=== PATIENT | male | born 1975 | race Caucasian/White ===

== ENCOUNTER 2017-06-15 14:52 | Emergency (ER) | payer OTHER ==
[2017-06-15 15:15] VITALS: BP 155/83
[2017-06-15] MEDS ORDERED: Sodium Chloride 0.9% 1,000 ML IV ONE (15:33)
[2017-06-15] MEDS ORDERED: Meclizine 25 MG Tab PO ONE (15:34)
[2017-06-15] MEDS ORDERED: Loratadine 10 MG Tab PO ONE (15:34)
[2017-06-15] MEDS ORDERED: Sodium Chloride 0.9% 10 ML Syringe FLUSH PRN (15:34)
--- NOTE | 2017-06-15 15:39 | EDM.PDOC ---
ED HPI GENERAL MEDICAL PROBLEM - General Chief Complaint: Gastrointestinal Problem Stated Complaint: DIZZY; NAUSEA Time Seen by Provider: 06/15/17 15:30 Source of Information: Reports: Patient History Limitations: Reports: No Limitations - History of Present Illness INITIAL COMMENTS - FREE TEXT/NARRATIVE: Lane is an otherwise healthy 42 year old male who presents to the ED today with c/o dizziness since 8 PM yesterday. Patient endorses a room spinning and "shifting" sensation. He denies any chest pain/palpitations or fever/chills. Patient reports similar symptoms 3 times in the recent past only lasting for 15- 20 minutes. He has not been seen for this until today. Patient reports recent cold/URI but denies any other recent illness. Patient does endorse nausea/ vomiting. Onset: Sudden Duration: Day(s): (1) Parietal Headache Pain Score (Numeric/FACES): 2 - Related Data Allergies Allergy/AdvReac Type Severity Reaction Status Date / Time amoxicillin Allergy Cannot Verified 06/15/17 15:18 Remember Sulfa (Sulfonamide Allergy Cannot Verified 06/15/17 15:18 Antibiotics) Remember Home Meds: Home Meds NK [No Known Home Meds] 06/15/17 [History] Past Medical History HEENT History: Reports: Impaired Vision - Infectious Disease History Infectious Disease History: Reports: Chicken Pox - Past Surgical History GI Surgical History: Reports: Hernia Repair/Other Social & Family History - Tobacco Use Smoking Status *Q: Never Smoker - Caffeine Use Caffeine Use: Reports: Coffee, Soda - Recreational Drug Use Recreational Drug Use: No ED ROS GENERAL - Review of Systems Review Of Systems: ROS reveals no pertinent complaints other than HPI. ED EXAM, DIZZINESS - Physical Exam Exam: See Below Exam Limited By: No Limitations General Appearance: Alert, WD/WN, No Apparent Distress Eye Exam: Bilateral Eye: EOMI, Normal Inspection, PERRL, Other (No nystagmus, patient unable to differentiate which side is worse on exam) Ears: Normal External Exam, Normal Canal, Hearing Grossly Normal, Normal TMs Throat/Mouth: Normal Inspection, Normal Oropharynx Head Exam: Atraumatic Neck: Normal Inspection, Supple, Non-Tender, Full Range of Motion Respiratory/Chest: No Respiratory Distress, Lungs Clear, Normal Breath Sounds Cardiovascular: Normal Peripheral Pulses, Regular Rate, Rhythm, No Murmur GI/Abdominal: Normal Bowel Sounds, Soft, Non-Tender Neurological: Alert, Normal Mood/Affect, Normal Dorsiflexion, CN II-XII Intact, Normal Plantar Flexion, Normal Reflexes, No Motor/Sensory Deficits, Oriented x 3 , Other Extremities: Normal Inspection Psychiatric: Normal Affect, Normal Mood Skin Exam: Warm, Dry, Intact Course - Vital Signs Last Recorded V/S: Last Vital Signs Temp 36.6 C 06/15/17 15:14 Pulse 65 06/15/17 15:14 Resp 16 06/15/17 15:14 BP 155/83 H 06/15/17 15:14 Pulse Ox 96 06/15/17 15:14 Lane is an otherwise healthy 42-year-old male who presents to the emergency department stay with a room spinning sensation that started yesterday. Please refer to history of present illness and focused exam. Patient likely has benign positional vertigo. Cerebellar stroke would be less likely given lack of risk factors, CT scan was obtained and is negative for any acute intracranial pathology. Blood work was obtained including a CBC and CMP, potassium is mildly low at 3.4 otherwise remaining blood work is within normal limits. Patient was given a liter of IV fluid here in the emergency room with meclizine and Claritin with improvement in his nausea and some improvement in his dizziness. I feel he is stable to be discharged home, I will send him home with additional meclizine and have him follow-up with his primary care provider sometime this next week. Patient was given information on the Crow and half somersault maneuvers which she can try at home. Reasons to return to the emergency department were discussed in detail, patient was instructed not to drive until his dizziness has resolved. Patient and his are agreeable to plan of care patient was discharged in stable condition. - Orders/Labs/Meds Orders: Active Orders 24 hr Category Date Time Status Peripheral IV Care [RC] . DIRECTED Care 06/15/17 15:34 Active Head wo Cont [CT] Stat Exams 06/15/17 15:33 Taken Sodium Chloride 0.9% [Saline Flush] Med 06/15/17 15:34 Active 10 ml FLUSH ASDIRECTED PRN Peripheral IV Insertion Adult [OM.PC] Routine Oth 06/15/17 15:34 Ordered Medication Orders Sodium Chloride (Saline Flush) 10 ml FLUSH ASDIRECTED PRN PRN Reason: Keep Vein Open Last Admin: 06/15/17 16:04 Dose: 10 ml Labs: Laboratory Tests 06/15/17 06/15/17 Range/Units 15:44 15:44 WBC 9.4 (4.5-11.0) K/uL RBC 4.98 (4.30-5.90) M/uL Hgb 14.1 (12.0-15.0) g/dL Hct 41.2 (40.0-54.0) % MCV 83 (80-98) fL MCH 28 (27-31) pg MCHC 34 (32-36) % Plt Count 277 (150-400) K/uL Neut % (Auto) 73 H (36-66) % Lymph % (Auto) 17 L (24-44) % Gordon % (Auto) 9 H (2-6) % Eos % (Auto) 0 L (2-4) % Baso % (Auto) 1 (0-1) % Sodium 141 (140-148) mmol/L Potassium 3.4 L (3.6-5.2) mmol/L Chloride 106 (100-108) mmol/L Carbon Dioxide 28 (21-32) mmol/L Anion Gap 10.4 (5.0-14.0) mmol/L BUN 15 (7-18) mg/dL Creatinine 1.0 (0.8-1.3) mg/dL Est Cr Clr Drug Dosing 89.97 mL/min Estimated GFR (MDRD) > 60 (>60) Glucose 93 (74-106) mg/dL Calcium 8.5 (8.5-10.1) mg/dL Total Bilirubin 0.4 (0.2-1.0) mg/dL AST 20 (15-37) U/L ALT 34 (12-78) U/L Alkaline Phosphatase 80 (46-116) U/L Total Protein 7.2 (6.4-8.2) g/dL Albumin 3.6 (3.4-5.0) g/dL Globulin 3.6 H (2.3-3.5) g/dL Albumin/Globulin Ratio 1.0 L (1.2-2.2) Meds: Medications Generic Name Dose Route Start Last Admin Trade Name Freq PRN Reason Stop Dose Admin Sodium Chloride 10 ml 06/15/17 15:34 06/15/17 16:04 Saline Flush FLUSH 10 ml ASDIRECTED PRN Administration Keep Vein Open Discontinued Medications Generic Name Dose Route Start Last Admin Trade Name Manda PRN Reason Stop Dose Admin Sodium Chloride 1,000 mls @ 999 mls/hr 06/15/17 15:33 06/15/17 16:03 Normal Saline IV 06/15/17 16:33 999 mls/hr .BOLUS ONE Administration Loratadine 10 mg 06/15/17 15:34 06/15/17 16:04 Claritin PO 06/15/17 15:35 10 mg ONETIME ONE Administration Meclizine HCl 25 mg 06/15/17 15:34 06/15/17 16:01 Antivert PO 06/15/17 15:35 25 mg ONETIME ONE Administration Potassium Chloride 40 meq 06/15/17 16:26 Potassium Chloride Solution PO 06/15/17 16:27 ONETIME ONE Potassium Chloride 40 meq 06/15/17 16:52 06/15/17 16:56 Klor-Con M20 PO 06/15/17 16:53 40 meq ONETIME ONE Administration Departure - Departure Time of Disposition: 17:30 Disposition: Home, Self-Care 01 Condition: Good Clinical Impression: Benign positional vertigo Qualifiers: Laterality: bilateral Qualified Code(s): H81.13 - Benign paroxysmal vertigo, bilateral - Discharge Information Instructions: Vertigo Referrals: Zack Williamson MD [Primary Care Provider] - Forms: ED Department Discharge Additional Instructions: Lane Please stay well hydrated, take Meclize for dizziness and nausea as prescribed. Call your clinic tomorrow to schedule f/u appt this week. You can you tube the half somersault maneuver and the Crow maneuver to see if these resolve your symptoms. Return to the Emergency Room with any worsening symptoms/complications. Your potassium was mildly low today, eat some bananas!! Take care and I hope you feel better soon. - My Orders Last 24 Hours: My Active Orders 06/15/17 15:33 Head wo Cont [CT] Stat 06/15/17 15:34 Peripheral IV Care [RC] . DIRECTED Sodium Chloride 0.9% [Saline Flush] 10 ml FLUSH ASDIRECTED PRN Peripheral IV Insertion Adult [OM.PC] Routine - Assessment/Plan Last 24 Hours: My Active Orders 06/15/17 15:33 Head wo Cont [CT] Stat 06/15/17 15:34 Peripheral IV Care [RC] . DIRECTED Sodium Chloride 0.9% [Saline Flush] 10 ml FLUSH ASDIRECTED PRN Peripheral IV Insertion Adult [OM.PC] Routine
[2017-06-15] MEDS ORDERED: Potassium Chloride 10% 20 MEQ/15 ML Soln 15 ML UD Cup PO ONE (16:26)
[2017-06-15] MEDS ORDERED: Potassium Chloride 20 MEQ Tab.ER PO ONE (16:52)
== END 2017-06-15 17:42 | disposition home or self-care (01) ==
LOC: JP.ED 14:52
DX: H81.13 Benign paroxysmal vertigo, bilateral (principal); Z98.890 Other specified postprocedural states; Z88.1 Allergy status to other antibiotic agents; Z88.2 Allergy status to sulfonamides
CPT/HCPCS: 36415; 70450; 80053; 85025; 96360; 99284; A9270; J7040; J7050

== ENCOUNTER 2019-05-15 20:46 | Emergency (ER) | payer OTHER ==
[2019-05-15 21:26] VITALS: BP 160/87; PULSE 76
--- NOTE | 2019-05-15 21:43 | EDM.PDOC ---
ED HPI GENERAL MEDICAL PROBLEM - General Chief Complaint: Laceration Stated Complaint: STITCHES REMOVED/WOUND REOPENED Time Seen by Provider: 05/15/19 21:30 Source of Information: Reports: Patient History Limitations: Reports: No Limitations - History of Present Illness INITIAL COMMENTS - FREE TEXT/NARRATIVE: Patient presents to the ED today with open wound to right upper arm. Patient had a benign growth excised a week ago, stitches removed yesterday, wound pop opened this evening. NO other complaints, no concerns of infection. - Related Data Allergies Allergy/AdvReac Type Severity Reaction Status Date / Time amoxicillin Allergy Cannot Verified 05/15/19 21:29 Remember Sulfa (Sulfonamide Allergy Cannot Verified 05/15/19 21:29 Antibiotics) Remember Home Meds: Home Meds NK [No Known Home Meds] 06/15/17 [History] Past Medical History HEENT History: Reports: Impaired Vision - Infectious Disease History Infectious Disease History: Reports: Chicken Pox - Past Surgical History GI Surgical History: Reports: Hernia Repair/Other Social & Family History - Family History Family Medical History: Noncontributory - Tobacco Use Smoking Status *Q: Never Smoker Second Hand Smoke Exposure: No - Caffeine Use Caffeine Use: Reports: Soda - Recreational Drug Use Recreational Drug Use: No ED ROS GENERAL - Review of Systems Review Of Systems: ROS reveals no pertinent complaints other than HPI. ED EXAM, SKIN/RASH Exam: See Below Exam Limited By: No Limitations General Appearance: Alert, WD/WN, No Apparent Distress Head: Atraumatic, Normocephalic Neck: Normal Inspection Respiratory/Chest: No Respiratory Distress Cardiovascular: Regular Rate, Rhythm Extremities: Normal Inspection Neurological: Alert, Oriented, CN II-XII Intact Psychiatric: Normal Affect, Normal Mood Skin: Warm, Dry, Other (0.5 cm open wound to right upper arm, granulation tissue present, no signs of infection) Associated features: No: Warmth, Tenderness, Swelling, Inflammation Lymphatic: No Adenopathy Course - Vital Signs Last Recorded V/S: Last Vital Signs Temp 36.1 C 05/15/19 21:31 Pulse 76 05/15/19 21:31 Resp 14 05/15/19 21:31 BP 160/87 H 05/15/19 21:31 Pulse Ox 98 05/15/19 21:31 Open wound from excision. Discussed increased risk of infection with patient with re-suturing, Dermabond used to seal edges and fill in wound. Wound care discussed, patient call follow up with PCP as needed. Reasons to return to the ED discussed. Patient agreeable and discharged in stable condition. Departure - Departure Time of Disposition: 22:00 Disposition: Home, Self-Care 01 Condition: Good Clinical Impression: Broken skin - Discharge Information Instructions: Stitches, [place], or Adhesive Wound Closure, [id number] Referrals: Zack Williamson MD [Primary Care Provider] - Forms: ED Department Discharge Additional Instructions: Keep clean and dry, you can shower, gently blot dry when done. Avoid topical creams/ointments as these erode the glue, should heal in the next week. Follow up with primary care with concerns of infection such as redness warmth or drainage.
== END 2019-05-15 21:53 | disposition home or self-care (01) ==
LOC: JP.ED 20:46
DX: S41.101A Unspecified open wound of right upper arm, initial encounter (principal); Z88.1 Allergy status to other antibiotic agents; Z88.2 Allergy status to sulfonamides; X58.XXXA Exposure to other specified factors, initial encounter
CPT/HCPCS: 12001; 12020; 99282

== ENCOUNTER 2022-03-09 20:39 | Emergency (ER) | payer OTHER ==
[2022-03-09 21:54] VITALS: BP 156/82; PULSE 85
[2022-03-09] MEDS ORDERED: Bacitracin Oint 1 GM U/D Packet TOP ONE (22:54)
== END 2022-03-09 23:10 | disposition home or self-care (01) ==
LOC: JP.ED 20:39
DX: S61.452A Open bite of left hand, initial encounter (principal); Z88.0 Allergy status to penicillin; Z88.2 Allergy status to sulfonamides; Z23 Encounter for immunization; W53.81XA Bitten by other rodent, initial encounter
CPT/HCPCS: 90471; 99282; 99283